=== PATIENT | male | born 1930 | race Caucasian/White ===

== ENCOUNTER 2016-04-08 10:15 | Inpatient (IN) | payer MEDICARE, BC ==
[~2016-04-08] VITALS: Ht 167.6 cm; Wt 60.1 kg
--- NOTE | 2016-04-20 19:51 | NUR ---
DAY SHIFT SUMMARY:EATING OF PUREED NECTAR THICK DIET IS DUPERVISED; MOD ASSIST OF 1 FOR GROOMING AND BED/W/C TRANSFERS; MAX ASSIST FOR DRESSING, TOILETING AND TOILET TRANSFER
--- NOTE | 2016-04-24 20:40 | NUR ---
DAY SHIFT SUMMARY: SEE OT NOTES FOR FIM RT SHOWER, DRESSING, GROOMIN AND SHOWER TRANSFER. MOD ASSIST OF 1 FOR TOILETING, STAND PIVOT TRANSFER BED/W/C/CHAIR AND TOILET, TOTAL ASSIST FOR W/C PROPULSION; WEAR DEPENDS.
--- NOTE | 2016-04-28 21:37 | NUR ---
DAY SHIFT SUMMARY: 1130 PT TRANSFERRED TO [facility]. EATING AND GROOMING SUPERVISED; MOD ASSIST FOR UPPER DRESSING ANSD STAND PIVOT TRANSFERS BED/W/C/CHAIR/TOILET-STILL 25LB WT RESTRICT R LEG; MAX ASSIST FOR LOWER BODY DRESSING; TOTAL ASSIST FOR W/C PROPULSION
[2016-04-29] MEDS ORDERED: PLAVIX75 MG PO (11:44)
[2016-04-29] MEDS ORDERED: PRAVACHOL10 MG PO (11:44)
[2016-04-29] MEDS ORDERED: SYMMETREL-DPS100 MG PO (11:45)
[2016-04-29] MEDS ORDERED: SENOKOT S1 TAB PO ×2 (11:45→11:46)
[2016-04-29] MEDS ORDERED: TYLENOL EXTRA500 M1 PO (11:45)
[2016-04-29] MEDS ORDERED: VITAMIN D1000 UNIT PO (11:46)
[2016-04-29] MEDS ORDERED: TEARS NATURAL D15 ML OU (11:46)
[2016-04-29] MEDS ORDERED: VITAMIN B-12500 MCG PO (11:46)
[2016-04-29] MEDS ORDERED: SPORTS CREAM85 GM TP (11:47)
[2016-04-29] MEDS ORDERED: ASPIRIN325 MG PO (11:47)
--- NOTE | 2016-05-11 10:52 | CO ---
ADMIT: 04/08/2016 RM/LOC: 612 [facility] MR#: [id number] [address] [address] SERGEI SALINAS [place], [place] [id number] Consultation SEX: M AGE: 86 : 1930 DATE OF CONSULTATION: 04/17/2016 ATTENDING PHYSICIAN: Jerson Crespo CONSULTING PHYSICIAN: Vinayak Lomeli MD REASON FOR CONSULTATION: Question of interval ischemia. HISTORY OF PRESENT ILLNESS: The patient is an 86-year-old gentleman with past medical history as below, who was admitted to [facility] after he had several falls which lead to right intertrochanteric hip fracture. He underwent surgical correction within this hospitalization. Unfortunately, course was complicated by development of delirium. He was finally, after stabilization, discharged to IRU on 04/08. His daughter was concerned that the patient has not been the same as before. The change occurred after the first fall. PAST MEDICAL HISTORY: Significant for left-sided embolic ischemic stroke in 2012, history of carotid stenosis, hypertension, prostate cancer, CAD, hyperlipidemia. MEDICATIONS: His outpatient medications prior to the admission were only aspirin 325. Currently, he takes aspirin 81. ALLERGIES: HE IS ALLERGIC TO NETTE INHIBITORS, PENICILLINS. SOCIAL HISTORY: Former smoker. No alcohol. REVIEW OF SYSTEMS: Difficult to obtain secondary to his underlying cognitive decline and aphasia. FAMILY HISTORY: Noncontributory to current presentation. PHYSICAL EXAMINATION: VITAL SIGNS: Temperature 98.9, heart rate 88, respirations 18, blood pressure 140/74, saturation 95% on room air. NEUROLOGIC: The patient is awake and alert. Orientation is difficult to assess. He knows that he is in the hospital. His speech is profoundly hypophonic and he is also aphasic. He follows approximately 30% of simple step commands. Uses automatic language and automatic questions. It is difficult to assess cognitive function secondary to communication deficits. Cranial nerves examination difficult to assess. The patient was unable to understand commands, has responded to visual threat on both sides. Pupils appear equal, reactive. Extraocular muscles intact. Face appears to be fairly symmetric. Facial sensation seems to be normal. Hearing to voice possibly intact. Unable to visualize uvula or palatal arches. Shoulder shrug is symmetric. Motor examination, he has normal tone. He has generalized weakness, but again difficult to assess as he was not able to follow commands and participate in confrontational testing. He had partial success with extension of his upper extremities that reveals 4+. Lower extremities did not ADMIT: 04/08/2016 RM/LOC: 612 [facility] MR#: [id number] [address] [address] [place] [address] Consultation SEX: M AGE: 86 : 1930 follow any command for that. Sensory examination; responds to painful stimulation. While examining, he is able to perceive touch. Temperature, he says I do not know. Coordination; did not participate in [id number]. Reflexes are fairly brisk throughout with pathological reflexes on left side. Gait; deferred. IMAGING DATA: I obtained the MRI from 02/03/2013, at the time when he suffered from embolic left-sided ischemic stroke. This was compared to the CT's obtained on 04/04/2016 and 04/06/2016. There is an interval development of right thalamic lacunar stroke. This is the only change that I could clam picker. The reported hypodensity extending to occipital region is seen on the old MRI as well. Back to lacunar stroke, it is age indeterminate, possibly subacute to chronic. There is only minimal change in density in between CT's that were obtained in 2-day interval. ASSESSMENT: Interval development of right thalamic lacunar stroke, age undetermined, subacute to chronic. This is new when compared to the MRI images dated 02/03/2013. PLAN: I would recommend to start limited stroke workup. We will obtain lipid panel, carotid Doppler. Aspirin is to be increased to 325 per day. If he is able to tolerate it and there are no other problems, possibly we will need to transition to Plavix as he was on aspirin prior to this admission and had stroke development. Thank you very much for this interesting consultation. We will continue to follow. Vinayak Lomeli MD/ bhavana JOB #: [id number] CC: Jerson Crespo, Attending Physician UNKNOWN, Family Physician
--- NOTE | 2016-05-27 07:13 | DS ---
ADMIT: 04/08/2016 RM/LOC: 612 [facility] MR#: [id number] [address] [address] [place] [address] General Discharge Summary SEX: M AGE: 86 : 1930 ADMISSION DATE: 04/08/2016 DISCHARGE DATE: 04/28/2016 DISCHARGE DIAGNOSES: Orthopedic disorder 08.11, status post unilateral hip fracture; S72.041S, displaced fracture of base of neck of right femur sequela; onset 04/03/2016. Comorbid conditions per initial H and P. Other diagnoses per hospital course below. HOSPITAL COURSE: Please see my initial H and P for details prior to transfer to the IRU. He was continued on puree, thin. PVRs normal on admission. Protonix discontinued to decrease risk of C. diff. Feosol changed to bedtime and added vitamin C for better absorption. Discontinuing Protonix would also help the iron absorption. DuoNeb adjusted, tapered to discontinuation. Senokot-S for constipation. Lab was monitored regularly. Tylenol used first for pain. Ibuprofen used second for pain. Lovenox continued for DVT prophylaxis. Postvoid residuals remain normal. B12 deficiency replaced with intermuscular injections. Iron came back normal and so Feosol and vitamin C were discontinued. Aspirin adjusted down while on Lovenox. Scheduled DuoNebs no longer necessary. Did EzPAP however, p.r.n. inadequate incentive spirometry. Suppository after supper for constipation. Warm water enema as necessary. Tylenol scheduled throughout the day for pain. Used Advil first p.r.n. after the Tylenol, OxyIR used second for pain. Dietitian followed to optimize nutrition. Pharmacy followed to optimize medication management. Vitamin D deficiency replaced. Ultram scheduled with Tylenol for pain, still used Advil first p.r.n. and OxyIR second p.r.n. UA with micro, no culture due to cognitive disorder, not otherwise specified. Ultram and OxyIR discontinued. Pain was better controlled and we did not want to cause any worsening delirium. Ritalin was scheduled at 8:00 a.m. and noon. EzPAP done. DuoNeb done once both 03/17/2016. Suppository after supper for constipation. Warm water enema as necessary. Neurology was consulted due to concern for new stroke based on outside records may have been the reason for his initial fall. Ritalin discontinued and started on Zoloft instead. B12 changed to p.o. Neurology saw the patient and did believe there was a stroke, right thalamic lacunar stroke appeared new. Due to fasting lipid panel and carotid ultrasound, aspirin was changed to 325 mg daily, was started on statin. Plavix was added. Aspirin reduced to 81 mg. UA with micro, no culture. Zoloft held due to some delirium again. Pravachol adjusted to daily to decrease of risk insomnia. Ritalin retried at 8 a.m. and noon. Natural tears p.r.n. Thin liquids advanced to that on 04/21/2016. DESIREE hose was discontinued. Senokot-S adjusted for constipation. Ritalin adjusted for cognition, stable, was discontinued on 04/23/2016. Lexapro started for depression. DuoNeb was discontinued. Tylenol used first for pain, Advil second. He developed side effects to the medication again, so he failed Zoloft and Lexapro, so we put SSRIs as an intolerance due to the delirium it caused. Ritalin discontinued and we tried amantadine. Patient was medically stable at the time of discharge. ADMIT: 04/08/2016 RM/LOC: 612 [facility] MR#: [id number] [address] [place] [id number] [place] [address] General Discharge Summary SEX: M AGE: 86 : 1930 Please see [facility] interdisciplinary discharge summary for details regarding progress in therapy. DISCHARGE DISPOSITION: [facility] for continued skilled rehab services. DISCHARGE MEDICATIONS: Please see discharge med rec. DIET: Puree and nectar thick liquids, pills crushed. DNR/DNI. FOLLOWUP: Dr. Lomeli on June 25, Dr. Paige next week, Dr. Carreno in 2 weeks. Jerson Crespo MD/ isabellel JOB #: [id number] CC:
[2016-06-22] MEDS ORDERED: DUONEB DPS3 ML IH (15:47)
[2016-06-22] MEDS ORDERED: LEVAQUIN DPS500 MG PO (15:50)
== END 2016-04-28 12:10 | DRG 559 ==
LOC: 6IRU 10:15
PROVIDERS: ADMIT Physical Medicine & Rehabilitation
PROC: F06Z6ZZ Communicative/Cognitive Integration Skills Treatment (ICD-10-PCS; principal; 2016-04-08)
PROC: F07Z9FZ Gait Training/Functional Ambulation Treatment using Assistive, Adaptive, Supportive or Protective Equipment (ICD-10-PCS; principal; 2016-04-08)
PROC: F08Z1FZ Dressing Techniques Treatment using Assistive, Adaptive, Supportive or Protective Equipment (ICD-10-PCS; principal; 2016-04-08)
PROC: F08Z2FZ Grooming/Personal Hygiene Treatment using Assistive, Adaptive, Supportive or Protective Equipment (ICD-10-PCS; principal; 2016-04-08)
DX: S72.041D Displaced fracture of base of neck of right femur, subsequent encounter for closed fracture with routine healing (principal); I63.9 Cerebral infarction, unspecified; F05 Delirium due to known physiological condition; F03.90 Unspecified dementia, unspecified severity, without behavioral disturbance, psychotic disturbance, mood disturbance, and anxiety; I69.351 Hemiplegia and hemiparesis following cerebral infarction affecting right dominant side; D62 Acute posthemorrhagic anemia; I69.320 Aphasia following cerebral infarction; R29.6 Repeated falls; I10 Essential (primary) hypertension; E78.5 Hyperlipidemia, unspecified; I69.392 Facial weakness following cerebral infarction; I69.319 Unspecified symptoms and signs involving cognitive functions following cerebral infarction; E53.8 Deficiency of other specified B group vitamins; K59.00 Constipation, unspecified; R49.0 Dysphonia; E55.9 Vitamin D deficiency, unspecified; F32.9 Major depressive disorder, single episode, unspecified; I25.10 Atherosclerotic heart disease of native coronary artery without angina pectoris; G89.18 Other acute postprocedural pain; W19.XXXD Unspecified fall, subsequent encounter; Z79.82 Long term (current) use of aspirin; Z87.891 Personal history of nicotine dependence

== ENCOUNTER 2016-06-18 02:49 | Inpatient (IN) | payer MEDICARE, BC ==
[~2016-06-18] VITALS: Ht 170.2 cm; Wt 61.8 kg
[~2016-06-18 02:49] MED LIST: ASPIRIN325 MG PO; PLAVIX75 MG PO; PRAVACHOL10 MG PO; SENOKOT S1 TAB PO; SPORTS CREAM85 GM TP; SYMMETREL-DPS100 MG PO; TEARS NATURAL D15 ML OU; TYLENOL EXTRA500 M1 PO; VITAMIN B-12500 MCG PO; VITAMIN D1000 UNIT PO
--- NOTE | 2016-06-18 19:07 | ER ---
ADMIT: 06/18/2016 RM/LOC: 524 [facility] MR#: [id number] 2620 [facility] [address] [place] [id number] [place] [address] Emergency Room Report SEX: M AGE: 86 : 1930 DATE: 06/18/2016 HISTORY OF PRESENT ILLNESS: The patient is an 86-year-old male with a past medical history of CVA, prostate cancer, status post recent intertrochanteric fracture surgery on the right side, came to the ER with chief complaint of ground-level fall and laceration to the right parietal area. The patient was in the facility for rehabilitation and states that the last few days, he had 3 times of ground-level fall and is little bit out of balance. The EMS stated that the patient was found down, which he pulled himself back to the wheelchair. There is no more information of the mechanism. The patient could not tell if he tripped or lost consciousness. PHYSICAL EXAMINATION: GENERAL: The patient in the ER is alert and oriented to person, place, and time and is in no obvious distress. The patient is sitting on the bed with blood clots and also dried blood on the right scalp area and some swelling in the right parietal area. The patient follows commands. Eyes are open and answers the question with a very low tone voice. Per chart, it was previous tone of voice. He was hypophonic. HEAD AND NECK: The patient had 1 cm small superficial laceration on the right parietal area with 3 cm hematoma around it. There is no obvious depressed bone. There is no raccoon eyes or Whitlock sign or hemotympanum. There is no septal hematoma in the nose. I did not see any signs of trauma in the mouth or oral cavity. NECK: There is no midline tenderness or step-offs. Trachea is midline. There is no bruit on the neck that are here. ABDOMEN: Soft and nontender, and in the right upper quadrant, there are multiple small bruising, mild swelling and looks kind of more than few hours because some of the bruising are turning yellow. The patient could not give any history of what happened to the abdomen. The patient denies any abdominal pain. CHEST: Clear bilateral to auscultation. HEART: Normal S1, S2 without any murmurs. MUSCULOSKELETAL: The patient has some abrasions over the scab of the right elbow. The patient had normal range of motion of all extremities, hips, knees, ankles, elbows and wrists and shoulders. MOTOR AND SENSORY: Grossly normal. NEUROVASCULAR: Grossly normal. LABORATORY AND IMAGING DATA: CT of the head and C-spine were negative for any acute changes. The patient had sodium of 144 with potassium of 3.9, glucose of 96, and creatinine of 1.0. CK was not significant, and the urine was negative for any infection or blood. EKG was normal sinus rhythm and without ADMIT: 06/18/2016 RM/LOC: 524 [facility] MR#: [id number] [address] [place] [phone] [place] [address] Emergency Room Report SEX: M AGE: 86 : [address] or T changes or Q-waves. Troponin I was negative. White BC was elevated to 19.1 with left shift. Hemoglobin was 13.2 with platelet of 239. Chest x-ray was questionable with left lower lung, cardiac border haziness, infiltration. The patient is allergic to penicillin and was started on clindamycin and levofloxacin. The patient was reexamined after cleaning all the wounds and the cephalohematoma is already drained and the laceration on the scalp is very superficial and already has some scab over it. The patient has no active bleeding. PLAN: The patient was admitted for further followups and treatments of the ground level fall, right scalp laceration and hematoma, questionable pneumonia, placement and PT assessment. Nolan Chung MD/ bhavana JOB #: [id number] CC: Bob Carreno MD, Attending Physician Bob Carreno MD, Family Physician
--- NOTE | 2016-06-19 15:06 | HP ---
ADMIT: 06/18/2016 RM/LOC: 524 [facility] MR#: [id number] 2620 [facility] [address] [place], [place] [address] [place]INAS [place], [place] [address] History and Physical SEX: M AGE: 86 : 1930 DATE OF SERVICE: CHIEF COMPLAINT: Fall, cough, confusion. HISTORY OF PRESENT ILLNESS: The patient is an 86-year-old gentleman, very pleasantly severely demented, who had suffered a fall a few months ago and had hip fracture. He had just returned back to assisted living facility. He has had a couple recurrent falls since that time. He struck his head last night. Overall, has been feeling like he has been actually more weak. The patient today really has no complaints. Little bit of a cough only he states and agrees to. Otherwise, no nausea or vomiting. Had a little bit of a headache. No other major pains. PAST MEDICAL HISTORY: 1. History of stroke. 2. Severe dementia. MEDICATIONS: He is on: 1. Aspirin. 2. Sennosides. 3. Artificial Tears. 4. Tylenol. 5. Clopidogrel. 6. DuoNeb. 7. Pravastatin. FAMILY HISTORY: Significant for multiple siblings. Denies any history of heart disease. SOCIAL HISTORY: Retired from [employer]. Nonsmoker. Lives in assisted living. Just recently returned there. REVIEW OF SYSTEMS: As per HPI. Otherwise, reviewed and negative but somewhat suspect for accuracy due to his degree of dementia. PHYSICAL EXAMINATION: VITAL SIGNS: Temperature 97.3, pulse 94, respiratory rate 18, blood pressure 110/70, O2 saturation 96% on room air. GENERAL: He is alert and oriented to person only. Not really even to purpose. HEENT: He has a large hematoma on his occiput. Some dried blood. Pupils are equal, round, and reactive to light and accommodation. Extraocular muscles intact. Dry mucous membranes. NECK: No lymphadenopathy. Soft, supple. Trachea midline. LUNGS: He has some rales in the left base, crackles. Not normal for him. Otherwise clear throughout. Symmetric thoracic excursion. HEART: Regular rate and rhythm. No murmurs, rubs, or gallops. ABDOMEN: Soft, nontender, nondistended. Bowel sounds present. EXTREMITIES: No cyanosis, clubbing, or edema. MUSCULOSKELETAL: With 5/5 strength in all four extremities. ADMIT: 06/18/2016 RM/LOC: 524 [facility] MR#: [id number] [address] [address] [place] [address] History and Physical SEX: M AGE: 86 : 1930 NEUROLOGICAL: No focal deficits noted. Cranial nerves II through XII grossly intact. PSYCHIATRIC: He is quite confused, but very pleasant and interacts well. LABORATORY AND X-RAY DATA: Chest x-ray, I reviewed. Possible early left lower lobe infiltrate versus atelectasis to me. BMP; creatinine is 1. D- dimer 7.8. White blood cell count 19.1, hemoglobin 13.2, platelets 239. Potassium 3.9. UA is negative. ASSESSMENT: 1. Pneumonia. 2. Falls, recurrent. 3. Head contusion. 4. Advanced dementia. PLAN: At this point in time, we will do IV antibiotics. We will repeat a chest x-ray in the morning as well as a CBC. I think he has a little early pneumonia there, cause of worsening of his weakness. We will have PT/OT work with him. Social Work consult. We will see how he does in the next 24 to 48 hours at least. Bob Carreno MD/ modl JOB #: [id number] CC: Bob Carreno, Attending Physician Bbo Carreno, Family Physician
[2016-06-22] MEDS ORDERED: DUONEB DPS3 ML IH (15:47)
[2016-06-22] MEDS ORDERED: LEVAQUIN DPS500 MG PO (15:50)
--- NOTE | 2016-06-25 10:58 | DS ---
ADMIT: 06/18/2016 RM/LOC: 524 [facility] MR#: [id number] [address] [address] [place] [address] Discharge Summary SEX: M AGE: 86 : 1930 ADMISSION DATE: 06/18/2016 DISCHARGE DATE: 06/21/2016 CONSULTATIONS: None. PROCEDURES: None. FINAL DIAGNOSES: 1. Pneumonia. 2. Dementia. 3. Fall with head contusion. 4. History of stroke. 5. History of hip fracture. REASON FOR ADMISSION: The patient is an 86-year-old gentleman who had had some falls at assisted living. Some mild increasing cough. Overall increased confusion, not feeling well. Admitted for stabilization. HOSPITAL COURSE: The patient was admitted. Chest x-ray showed very faint infiltrate pneumonia. Treated with IV antibiotics. Slowly and steadily improved with decreased cough. Mental status had some mild improvement, although continues to be severely demented at baseline. He otherwise felt safe and stable for discharge to care home and this was arranged. DISCHARGE MEDICATIONS: Please see discharge MAR which I fully reviewed. He will see me back in the clinic within a couple of weeks. Bob Carreno MD/ juang JOB #: [id number] CC: Bob Carreno MD, Attending Physician Bob Carreno MD, Family Physician
== END 2016-06-21 12:45 | DRG 195 ==
LOC: ER 02:49 → 5MS 05:19
PROVIDERS: ADMIT Internal Medicine
DX: J18.9 Pneumonia, unspecified organism (principal); F03.90 Unspecified dementia, unspecified severity, without behavioral disturbance, psychotic disturbance, mood disturbance, and anxiety; S01.01XA Laceration without foreign body of scalp, initial encounter; S00.03XA Contusion of scalp, initial encounter; W19.XXXA Unspecified fall, initial encounter; Z79.82 Long term (current) use of aspirin; Z86.73 Personal history of transient ischemic attack (TIA), and cerebral infarction without residual deficits; Z91.81 History of falling; Z85.46 Personal history of malignant neoplasm of prostate; Z66 Do not resuscitate

== ENCOUNTER → 2016-06-25 | Outpatient (CLI) | payer MEDICARE, BC ==
[~2016-06-25] MED LIST changes: +DUONEB DPS3 ML IH; +LEVAQUIN DPS500 MG PO
== END | disposition home or self-care (01) ==
LOC: RAD.S 16:43
DX: Z09 Encounter for follow-up examination after completed treatment for conditions other than malignant neoplasm (principal); Z86.73 Personal history of transient ischemic attack (TIA), and cerebral infarction without residual deficits; Z86.79 Personal history of other diseases of the circulatory system

== ENCOUNTER 2016-07-29 18:42 | Emergency (ER) | payer MEDICARE, BC ==
--- NOTE | 2016-08-08 18:05 | ER ---
ADMIT: 07/29/2016 RM/LOC: ER [facility] MR#: [id number] [address] [address] [place] [address] Emergency Room Report SEX: M AGE: 86 : 1930 DATE: 07/29/2016 CHIEF COMPLAINT: Injury to right arm. HISTORY OF PRESENT ILLNESS: An 86-year-old male, resident of [facility], brought here by EMS for evaluation after a fall sustained earlier today. Primarily concerned about a large hematoma on his right lower arm. The patient states he was going to put his walker away. He took some steps backwards when he fell, unknown if he hit his head. Denies loss of consciousness; however, he does have underlying dementia. Denies any pain in the right arm about the hematoma site. He has a history of multiple falls sustaining some intracranial hemorrhaging in the past. Denies any back pain, neck pain, chest pain, shortness of breath, cough, nausea, vomiting, or headache. Does have history of coronary artery disease, expressive aphasia, hyperlipidemia, or dementia. COURSE IN THE EMERGENCY ROOM: The patient was seen and examined, afebrile, nontoxic, in no acute distress. He is alert, however, somewhat confused and slow to answer questions secondary to his expressive aphasia. Inspection of the right arm is significant for a large, 4 x 6 cm hematoma quite firm. The patient denies any pain at this time. Vigorous palpation of the right lower arm and elbow elicits no pain. He has a full range of motion. Good capillary refill. Radial pulses are equal bilaterally. Sensation is somewhat diminished to light touch; however, daughter states this is chronic and secondary to some of his past falls. He has a full range of motion at the shoulder in all planes. Skin is warm and dry other than the hematoma on the right lower arm. Chest is nontender. Breath sounds equal bilaterally. Heart is regular rate and rhythm. I did defer x-raying the right arm today as he has no complaints of pain. He has a full range of motion. Neurovascularly, he is stable. Palpation of this area elicits no pain. I did apply an NETTE wrap to the right lower arm hematoma. ADMIT: 07/29/2016 RM/LOC: [facility] MR#: [id number] [address] [address] [place] [address] Emergency Room Report SEX: M AGE: 86 : 1930 IMPRESSION: 1. Right lower arm hematoma. 2. Fall. 3. DNI. 4. History of falls with intracranial hemorrhaging. DISPOSITION: The patient was discharged back to [facility] to resume medications and therapies as ordered. I did recommend they apply the NETTE wrap for compression. Okay to remove this at night when he sleeps. Recommended ice t.i.d. x15 minutes for the next 2 days then began moist heat 3 times a day for 5 days. They should follow up with Dr. Carreno with any concerns. Discharged back to [facility] in stable condition. PAULINO Navarro / Pablo Muniz MD / bhavana JOB #: [id number] CC: Pablo Muniz MD, Attending Physician Bob Carreno MD, Family Physician
== END 2016-07-29 20:00 | disposition home or self-care (01) ==
LOC: ER 18:42
DX: S50.11XA Contusion of right forearm, initial encounter (principal); I25.10 Atherosclerotic heart disease of native coronary artery without angina pectoris; E78.5 Hyperlipidemia, unspecified; F03.90 Unspecified dementia, unspecified severity, without behavioral disturbance, psychotic disturbance, mood disturbance, and anxiety; Z66 Do not resuscitate; W19.XXXA Unspecified fall, initial encounter